=== PATIENT | female | born 1970 | race Caucasian/White ===

== ENCOUNTER 2016-05-06 20:38 | Emergency (ER) | payer BC ==
[2016-05-06] MEDS ORDERED: PROMETHAZINE HCL 25 MG in DEXTROSE 5 % IN WATER 50 ML IM ONE ×2 (20:53)
--- NOTE | 2016-05-06 21:01 | ERNOTE ---
Headache ER HPI - Narrative Date of Service: 05/06/16 - General Presenting Symptoms: headache Time Seen by Provider: 05/06/16 20:51 Source: patient Exam Limitations: no limitations - Immun/Allergies/Home Medications Immunizations: IMMUNIZATION HX Immunizations Up to Date Yes History of Influenza Vaccine No Hx Pneumococcal Vaccination No Allergies/Adverse Reactions: Allergies albumin human *RETIRED-10/03/12 [From Rebif] Allergy (Intermediate, Verified 10/15 20:55) Shortness of Breath diphenhydramine HCl [From Benadryl] Allergy (Intermediate, Verified 05/06/16 20: 55) tachycardia morphine Allergy (Intermediate, Verified 05/06/16 20:55) difficult breathing peanut Allergy (Intermediate, Verified 05/06/16 20:55) HIVES, BREATHING ISSUES WALNUTS interferon beta-1a [From Rebif] Allergy (Unknown, Verified 05/06/16 20:55) amoxicillin [Amoxicillin] Adverse Reaction (Mild, Verified 05/06/16 20:55) Itching cephalexin [Cephalexin] Adverse Reaction (Mild, Verified 05/06/16 20:55) Itching erythromycin base [Erythromycin Base] Adverse Reaction (Mild, Verified 05/06/16 20:55) Itching hydrocodone Adverse Reaction (Mild, Verified 05/06/16 20:55) MIGRAINE varenicline tartrate [From Chantix] Adverse Reaction (Mild, Verified 05/06/16 20 :55) Headache tecfidera Allergy (Mild, Uncoded 05/06/16 20:55) Hives "felt like body was on fire" contrast dye Adverse Reaction (Intermediate, Uncoded 05/06/16 20:55) chest pain Home Medications: HOME MEDICATIONS ALPRAZolam [Xanax] 0.5 mg PO HS 09/11/14 [Last Taken Unknown] Furosemide [Lasix] 20 mg PO DAILY 10/11/15 [Last Taken Unknown] Acetaminophen with Codeine [Tylenol with Codeine #3 Tablet] 1 each PO Q6H PRN [Last Taken Unknown] Teriflunomide [Aubagio] 14 mg PO DAILY 01/11/16 [Last Taken Unknown] Clindamycin HCl [Cleocin HCl] 300 mg PO BID 05/06/16 [Last Taken Unknown] Promethazine HCl [Phenergan] 25 mg PO QID PRN #30 tab 05/06/16 [Last Taken Unknown] oxyCODONE HCL/ACETAMINOPHEN [Percocet 5 MG/325 MG] 5 PO PRN PRN 05/06/16 [Last Taken Unknown] - History of Present Illness Narrative: Pt. comes in with c/o L temporal and frontal headache for two days. Pt. has a recent hx of TMJ pain and dental infection and is on abx for this. Pt. states that headache started yesterday and was not relieved despite taking percocet. Pt. also states that she has nausea with this. Pt. does however state that this is one of the worst headaches she has had but also states that when she gets a MS flare her headaches are worse than this. Pt. also states that she has blurred vision but denies any double vision and states that she has a hx of this intermittently. Pt. denies any numbness, tingling, or dizziness. Pt. denies any alleviating factors but states that light exacerbates the symptoms and the symptoms are accompanied by nausea and vomiting. Review of Systems - Review of Systems Constitutional: Present: no symptoms reported. Absent: recent illness, fever, chills, weakness, fatigue, malaise EYE: Present: blurred vision. Absent: eye pain, double vision, tearing ENT: Present: ear pain - L, other - L jaw pain. Absent: ear discharge, nose pain, nose congestion, nasal drainage Respiratory: Present: no symptoms reported. Absent: shortness of breath, cough , wheezing Cardiology: Present: no symptoms reported. Absent: chest pain, palpitations, edema Gastrointestinal/Abdominal: Present: nausea, vomiting. Absent: diarrhea, constipation, abdominal pain Genitourinary: Present: no symptoms reported Musculoskeletal: Present: no symptoms reported. Absent: back pain, joint pain Skin: Present: no symptoms reported Neurological: Present: headache. Absent: dizziness/light-headedness, numbness, tingling All Other Systems: All systems neg except as marked - Patient's Past Medical History Patient History - Medical: Anxiety, Arthritis, Depression, Migraines, Other - multiple sclerosis Patient History - Cardiac/Respiratory: No pertinent hx Patient History - Cancer: No Hx of Cancer Patient History - Surgical Procedures: Tubal Ligation, T & A, Other Patient History - Other: None - Family History Mother Family History - Cardiac/Respiratory: CVA/Stroke, Other Father Family History - Medical: Anemia, Arthritis, Other Family History - Cardiac/Respiratory: COPD, Hyperlipidemia Brother Family History - Medical: Diabetes Type 2, Other Family History - Cardiac/Respiratory: COPD Grandfather-Maternal Family History - Cardiac/Respiratory: Myocardial Infarction Grandfather-Paternal Family History - Medical: , Diabetes Type 1 Family History - Cardiac/Respiratory: Hypertension, Myocardial Infarction Grandmother-Maternal Family History - Cardiac/Respiratory: CVA/Stroke, Hypertension, Other Grandmother-Paternal Family History - Medical: Diabetes Type 2 Family History - Cardiac/Respiratory: Atrial Fibrillation, CVA/Stroke, Hypertension - Social History Living Situations: home Abuse History: No History of abuse Psych History: Hx of Anxiety, Hx of Depression Alcohol Use: occasionally Drug Use: none - Immunizations Immunizations Up to Date: Yes Hx Pneumococcal Vaccination: No History of Influenza Vaccine: No Physical Exam - Physical Exam General Appearance: Present: wd/wn, alert, no apparent distress Eye Exam: Normal inspection: bilateral, PERRL: bilateral, EOMI: bilateral Ears, Nose, Throat: Present: normal ENT inspection, normal pharynx Neck: Present: normal inspection, nontender. Absent: lymphadenopathy (R), lymphadenopathy (L) Respiratory: Present: no respiratory distress, normal breath sounds, no accessory muscle use, chest nontender, lungs clear Cardiovascular/Chest: Present: regular rate, rhythm, no murmur, normal peripheral pulses Gastrointestinal/Abdominal: Present: normal bowel sounds, nontender, nondistended, soft, no organomegaly Back Exam: Present: normal inspection, normal range of motion, no CVA tenderness , no vertebral tenderness Extremity Exam: Present: normal inspection Neurological Exam: Present: alert, oriented, normal mood/affect, no motor/ sensory deficits. 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 Absent: pallor, skin rash ED Progress - Vital Signs Patient's Vital Signs:: I have reviewed the patient's vital signs. - Progress/Reassessment Progress:: Improved Departure Clinical Impression: Complicated migraine - Departure Disposition: Home self-care Condition: Good Instructions: Recurrent Migraine Headache, [id number] Additional Instructions: Please follow up with dentist for jaw pain and your neurologist to discuss further headache and MS treatment. Referrals: Timo Moran MD [Primary Care Provider] - Prescriptions: Promethazine HCl [Phenergan] 25 mg PO QID PRN #30 tab PRN Reason: nausea/vomiting
--- OUTSIDE RECORDS SUMMARY | 2016-05-06 21:03 | XMS REPORT | Continuity of Care Document ---
:1970 Author Organization [facility] ([facility]) Address [address] [place] [address] Phone [phone] Care Team Providers Name Role Phone Summer Palacios Primary Care Provider [phone] Source Comments This disclosure is being made pursuant to the Care Everywhere program, applicable federal and state laws, and may not contain all informaitonavailable regarding this patient.[facility] ([facility]) Active Allergies and Adverse Reactions Allergen Noted Date Severity Reactions Comments Cephalexin 09/19/2012 Urticaria (Hives) Contrast Media Cardiac Arrhythmia Diphenhydramine Hcl 05/05/2012 Tachycardia Interferon Beta-1a 05/05/2012 Nausea & Vomiting Migraine Morphine 05/05/2012 Shortness of breath Difficulty breathing. Current Medications Prescription Sig. Disp. Refills Start Date End Date Status ALPRAZolam 0.5 mg Take 0.5 mg by mouth Active tablet at bedtime as needed. amitriptyline 50 mg Take 50 mg by mouth Active tablet at bedtime. CALCIUM Take 1,000 mg by Active CARBONATE/VITAMIN D3 mouth daily. (VITAMIN D-3 PO) BLACK COHOSH PO Take by mouth Active daily. gabapentin 300 mg Take 1 capsule each 90 Cap 0 09/19/2012 Active capsule day at bedtime for 1 week. If symptoms are not relieved, take 2 capsules each day at bedtime for 1 week. If symptoms still are not relieved, take 3 capsules each day at bedtime.Indications: NEUROPATHIC PAIN HYDROCODONE Take by mouth. Active BIT/ACETAMINOPHEN (VICODIN PO) traMADol PO Take by mouth. Active Active Problems Problem Noted Date History of multiple sclerosis 09/19/2012 Ulnar neuropathy of both upper extremities 09/19/2012 Social History Tobacco Use Types Packs/Day Years Used Date Current Every Day Smoker Comments:1ppd Alcohol Use Drinks/Week oz/Week Comments Yes Very rarely Last Filed Vital Signs Vital Sign Reading Time Taken Blood Pressure 133/94 10/01/2012 8:54 PM CDT Pulse 72 10/01/2012 8:54 PM CDT Temperature 35.6 C (96.1 F) 10/01/2012 8:54 PM CDT Respiratory Rate 20 10/01/2012 8:54 PM CDT Height - - Weight - - Body Mass Index - - Oxygen Saturation 100% 10/01/2012 8:54 PM CDT Plan of Care Health Maintenance Due Date Last Done Comments Hepatitis B Vaccine (1 of 3 - Primary Series) 1970 Tdap Vaccine 12/31/1978 Lipid Disorder Screening 12/31/1985 MMR Vaccine 12/31/1985 Td Vaccine 12/31/1985 Pneumococcal Vaccine (1 of 1 - PPSV23) 12/31/1986 Cervical Cancer Screening 12/31/1997 Mammogram 2008 Influenza Vaccine: Seasonal (#1) 09/30/2015 Results from Last 3 Months Not on file
[2016-05-06] MEDS ORDERED: NALBUPHINE HCL 20 MG/ML AMPUL ONE (21:05)
[2016-05-06] MEDS ORDERED: PROMETHAZINE HCL 25 MG/ML AMPUL ONE (21:05)
[2016-05-06] MEDS: PROMETHAZINE HCL 25 MG/ML AMPUL IM ONE (21:11)
[2016-05-06] MEDS: NALBUPHINE HCL 20 MG/ML AMPUL IM ONE (21:12)
[2016-05-06 22:10] VITALS: BP 158/100
== END 2016-05-06 22:07 | disposition home or self-care (01) ==
LOC: ER 20:38
DX: G43.109 Migraine with aura, not intractable, without status migrainosus (principal); F41.9 Anxiety disorder, unspecified

== ENCOUNTER 2016-07-10 10:22 | Emergency (ER) | payer BC ==
[2016-07-10 10:35] VITALS: BP 181/108
--- NOTE | 2016-07-10 11:51 | ERNOTE ---
Psychological HPI - Date Date of Service: 07/10/16 - General Chief Complaint: Psychiatric Problem Source: Reports: patient, family - DAUGHTER. , police - Immun/Allergies/Home Medications Allergies/Adverse Reactions: Allergies albumin human [From Rebif] Allergy (Intermediate, Verified 07/10/16 10:35) Shortness of Breath diphenhydramine HCl [From Benadryl] Allergy (Intermediate, Verified 07/10/16 10: 35) tachycardia morphine Allergy (Intermediate, Verified 07/10/16 10:35) difficult breathing peanut Allergy (Intermediate, Verified 07/10/16 10:35) HIVES, BREATHING ISSUES WALNUTS interferon beta-1a [From Rebif] Allergy (Unknown, Verified 07/10/16 10:35) amoxicillin [Amoxicillin] Adverse Reaction (Mild, Verified 07/10/16 10:35) Itching cephalexin [Cephalexin] Adverse Reaction (Mild, Verified 07/10/16 10:35) Itching erythromycin base [Erythromycin Base] Adverse Reaction (Mild, Verified 07/10/16 10:35) Itching hydrocodone Adverse Reaction (Mild, Verified 07/10/16 10:35) MIGRAINE varenicline tartrate [From Chantix] Adverse Reaction (Mild, Verified 07/10/16 10 :35) Headache tecfidera Allergy (Mild, Uncoded 07/10/16 10:35) Hives "felt like body was on fire" contrast dye Adverse Reaction (Intermediate, Uncoded 07/10/16 10:35) chest pain Home Medications: HOME MEDICATIONS ALPRAZolam [Xanax] 0.5 mg PO HS 09/11/14 [Last Taken Unknown] Furosemide [Lasix] 20 mg PO DAILY 10/11/15 [Last Taken Unknown] Acetaminophen with Codeine [Tylenol with Codeine #3 Tablet] 1 each PO Q6H PRN [Last Taken Unknown] Teriflunomide [Aubagio] 14 mg PO DAILY 01/11/16 [Last Taken Unknown] Clindamycin HCl [Cleocin HCl] 300 mg PO BID 05/06/16 [Last Taken Unknown] Promethazine HCl [Phenergan] 25 mg PO QID PRN #30 tab 05/06/16 [Last Taken Unknown] oxyCODONE HCL/ACETAMINOPHEN [Percocet 5 MG/325 MG] 5 PO PRN PRN 05/06/16 [Last Taken Unknown] - History of Present Illness Narrative: PT BROUGHT HERE BY POLICE AFTER SHE REPORTEDLY THREATENED TO"JUMP OFF A BRIDGE" . SHE STATED THAT SHE HAS BEEN TRYING TO GET INTO HER COUNSELOR BUT THEY COULDN' T SEE HER TODAY. SHE MADE SOME COMMENT THAT LED THEM TO CONTACT THE POLICE THOUGH SHE STATES SHE IS ANGRY AND UPSET WITH HER WHO HAS DECIDED AFTER 20 YEARS , THAT HE WANTS TO LEAVE HER FOR HIS EX- . SHE ADMITS THAT SHE MAY HAVE SAID THINGS THAT SHE DOES NOT MEAN AND IS ADAMANT NOW THAT SHE IS NOT OR EVER BEEN SUICIDAL OR HOMICIDAL. HER DAUGHTER , WHO LIVES 2 BLOCKS AWAY , IS WITH HER NOW AND SAYS SHE WILL BE ABLE TO BE WITH HER MOM ALL DAY AND THAT A 29 YO SON IN [place] IS COMING DOWN TOO. PT. HAS BEEN IN COUNSELING RECENTLY FOR MARITAL PROBLEMS SO SOME OF THESE ISSUES HAVE BEEN ONGOING. SHE DENIES DRUG OR ALCOHOL USE. Time Seen by Provider: 07/10/16 11:48 Arrived by: Reports: police Review of Systems - Review of Systems Constitutional: Present: See HPI Psych: Present: anxiety, depressed - OVER MARITAL ISSUES. All Other Systems: All systems neg except as marked - Patient's Past Medical History Patient History - Medical: Anxiety, Arthritis, Depression, Migraines, Other - M.S. Patient History - Cardiac/Respiratory: No pertinent hx Patient History - Cancer: No Hx of Cancer Patient History - Surgical Procedures: Tubal Ligation, T & A, Other Patient History - Other: None - Family History Mother Family History - Cardiac/Respiratory: CVA/Stroke, Other Father Family History - Medical: Anemia, Arthritis, Other Family History - Cardiac/Respiratory: COPD, Hyperlipidemia Brother Family History - Medical: Diabetes Type 2, Other Family History - Cardiac/Respiratory: COPD Grandfather-Maternal Family History - Cardiac/Respiratory: Myocardial Infarction Grandfather-Paternal Family History - Medical: , Diabetes Type 1 Family History - Cardiac/Respiratory: Hypertension, Myocardial Infarction Grandmother-Maternal Family History - Cardiac/Respiratory: CVA/Stroke, Hypertension, Other Grandmother-Paternal Family History - Medical: Diabetes Type 2 Family History - Cardiac/Respiratory: Atrial Fibrillation, CVA/Stroke, Hypertension - Social History Living Situations: home Abuse History: No History of abuse Psych History: Hx of Anxiety, Hx of Depression Smoking Status: Current every day smoker Alcohol Use: occasionally Drug Use: none - Immunizations Immunizations Up to Date: Yes Hx Pneumococcal Vaccination: No History of Influenza Vaccine: No Physical Exam - Physical Exam General Appearance: Present: wd/wn, alert, mild distress - MOSTLY UPSET THAT THAT SHE WAS BROUGHT HERE. Eye Exam: Normal inspection: bilateral, PERRL: bilateral, EOMI: bilateral Ears, Nose, Throat: Present: normal ENT inspection Neck: Present: normal inspection Respiratory: Present: no respiratory distress, normal breath sounds, no accessory muscle use, chest nontender, lungs clear Cardiovascular/Chest: Present: regular rate, rhythm, no murmur, normal peripheral pulses Gastrointestinal/Abdominal: Present: normal bowel sounds, nontender Back Exam: Present: normal inspection Extremity Exam: Present: normal inspection Neurological Exam: Present: alert, oriented, high tension tester II-XII nml as tested, other - MORE ANGRY THAN DEPRESSED. Skin Exam: Present: normal color ED Progress - Vital Signs Vital Signs: Vital Signs 07/10/16 10:32 Temperature 36.9 C Pulse Rate 78 Respiratory 16 Rate Blood Pressure 181/108 O2 Sat by Pulse 96 Oximetry - Progress/Reassessment Chief Complaint: Psychiatric Problem Plan - Plan Plan: I TALKED WITH HER AND DAUGHTER AND THEY ARE BOTH ADAMANT THAT SHE IS NOT SUICIDAL AND THAT DAUGHTER WILL BE WITH HER THIS WEEKEND TO HELP HER THRU HER EMOTIONAL UPSET. SHE DOES PLAN TO FOLLOW UP WITH HER COUNSELOR ON WEDNESDAY WHEN THEY ARE AVAILABLE . Departure Clinical Impression: Situational anxiety - Departure Disposition: Home Follow Up Needed Instructions: Panic Attacks, [id number] Additional Instructions: SITUATIONS LIKE YOU ARE CURRENTLY IN ARE VERY STRESSFUL AND EMOTIONAL BUT IT IS IMPORTANT TO MAKE DECISIONS IN TIMES LIKE THIS FROM A STANCE OF STRENGTH AND NO RASHLY OR SPUR OF THE MOMENT. RLEY ON YOUR SUPPORT SYSTEMS OF DAUGHTER AND SON AND AVOID CONFTONTATION WITH YOUR SPOUSE AT THIS TIME.I THINK YOU SHOULD KEEP APPOINTMENT WITH YOUR COUNSELOR OR TALK TO A THIRD GREEN PARTY LIKE A PASTO WHO OFTEN HAVE MUCH EXPERIENCE WITH THESE TYPE OF MATTERS. AVOID ALCOHOL OR ANY "PHARMACEUTICAL" CRUTCHES RIGHT NOW UNLESS THEY ARE PRESCRIBED TO YOU BY A MENTAL HEALTH WORKER. IF YOU ARE HAVING ANY SUICIDAL OR HOMICIDAL THOUGHTS SEEK HELP RIGHT AWAY RATHER THAN THREATENING OR ACTING ON THOSE THOUGHTS. Referrals: Timo Moran MD [Primary Care Provider] -
--- OUTSIDE RECORDS SUMMARY | 2016-07-10 12:00 | XMS REPORT | Continuity of Care Document ---
:1970 Author Organization [facility] ([facility]) Address [address] [place] [address] Phone [phone] Care Team Providers Name Role Phone Summer Palacios Primary Care Provider [phone] Source Comments This disclosure is being made pursuant to the Care Everywhere program, applicable federal and state laws, and may not contain all informaitonavailable regarding this patient.[facility] ([facility]) Active Allergies and Adverse Reactions Allergen [...]
== END 2016-07-10 12:19 | disposition home or self-care (01) ==
LOC: ER 10:22
DX: F41.8 Other specified anxiety disorders (principal)

== ENCOUNTER 2016-08-31 12:35 | Emergency (ER) | payer BC ==
--- NOTE | 2016-08-31 14:01 | ERNOTE ---
Lower Extremity HPI - Narrative Date of Service: 08/31/16 - General Lower Extremities Pain: leg: right Time Seen by Provider: 08/31/16 13:43 Source: patient, RN notes reviewed Exam Limitations: no limitations - Immun/Allergies/Home Medications Immunizations: IMMUNIZATION HX Immunizations Up to Date Yes History of Influenza Vaccine No Hx Pneumococcal Vaccination No Allergies/Adverse Reactions: Allergies Allergy/AdvReac Type Severity Reaction Status Date / Time albumin human [From Rebif] Allergy Intermediate Shortness Verified 08/31/16 12: 42 of Breath diphenhydramine HCl Allergy Intermediate tachycardia Verified 08/31/16 12:42 [From Benadryl] morphine Allergy Intermediate difficult Verified 08/31/16 12:42 breathing peanut Allergy Intermediate HIVES, Verified 08/31/16 12:42 BREATHING ISSUES interferon beta-1a Allergy Unknown Verified 08/31/16 12:42 [From Rebif] amoxicillin [Amoxicillin] AdvReac Mild Itching Verified 08/31/16 12:42 cephalexin [Cephalexin] AdvReac Mild Itching Verified 08/31/16 12:42 erythromycin base AdvReac Mild Itching Verified 08/31/16 12:42 [Erythromycin Base] hydrocodone AdvReac Mild MIGRAINE Verified 08/31/16 12:42 varenicline tartrate AdvReac Mild Headache Verified 08/31/16 12:42 [From Chantix] tecfidera Allergy Mild Hives Uncoded 08/31/16 12:42 contrast dye AdvReac Intermediate chest pain Uncoded 08/31/16 12:42 Home Medications: HOME MEDICATIONS ALPRAZolam [Xanax] 0.5 mg PO HS 09/11/14 [Last Taken Unknown] Furosemide [Lasix] 40 mg PO DAILY 10/11/15 [Last Taken Unknown] Acetaminophen with Codeine [Tylenol with Codeine #3 Tablet] 1 each PO Q6H PRN [Last Taken Unknown] Teriflunomide [Aubagio] 14 mg PO DAILY 01/11/16 [Last Taken Unknown] - History of Present Illness Narrative: 46 y/o female ambulatory to the ED for right calf pain and increased edema in her feet. She had a cramp in her calf a few nights ago and it has been sore since then. She is concerned about the edema because she takes Lasix and does not know why it is not controlling the swelling. She reports having a DVT approximately 2 years ago. She is not on any anticoagulants. She is a half pack per day smoker. Method of Injury: Reports: no apparent injury Prior Treament: Reports: similar symptoms before Review of Systems - Review of Systems Constitutional: Absent: recent illness, fever, chills EYE: Present: no symptoms reported ENT: Present: no symptoms reported Respiratory: Absent: shortness of breath, cough Cardiology: Present: edema, claudication. Absent: chest pain, palpitations, syncope Gastrointestinal/Abdominal: Absent: nausea, abdominal pain Genitourinary: Absent: dysuria, decreased urinary output Musculoskeletal: Present: muscle pain. Absent: back pain, joint pain Neurological: Present: dizziness/light-headedness. Absent: headache Endocrine: Present: no symptoms reported Hematologic/Lymphatic: Present: no symptoms reported Psych: Present: no symptoms reported - Patient's Past Medical History Patient History - Medical: Anxiety, Arthritis, Depression, Migraines, Other - Multiple sclerosis Patient History - Cardiac/Respiratory: No pertinent hx Patient History - Cancer: No Hx of Cancer Patient History - Surgical Procedures: Tubal Ligation, T & A, Other Patient History - Other: None - Family History Mother Family History - Cardiac/Respiratory: CVA/Stroke, Other Father Family History - Medical: Anemia, Arthritis, Other Family History - Cardiac/Respiratory: COPD, Hyperlipidemia Brother Family History - Medical: Diabetes Type 2, Other Family History - Cardiac/Respiratory: COPD Grandfather-Maternal Family History - Cardiac/Respiratory: Myocardial Infarction Grandfather-Paternal Family History - Medical: , Diabetes Type 1 Family History - Cardiac/Respiratory: Hypertension, Myocardial Infarction Grandmother-Maternal Family History - Cardiac/Respiratory: CVA/Stroke, Hypertension, Other Grandmother-Paternal Family History - Medical: Diabetes Type 2 Family History - Cardiac/Respiratory: Atrial Fibrillation, CVA/Stroke, Hypertension - Social History Living Situations: home Abuse History: No History of abuse Psych History: Hx of Anxiety, Hx of Depression Smoking Status: Current every day smoker Cigarettes Packs Per Day: 0.5 Alcohol Use: occasionally Drug Use: none - Immunizations Immunizations Up to Date: Yes Hx Pneumococcal Vaccination: No History of Influenza Vaccine: No Physical Exam - Physical Exam General Appearance: Present: wd/wn, alert, no apparent distress Neck: Present: normal inspection, nontender, supple, full range of motion Respiratory: Present: no respiratory distress, normal breath sounds, no accessory muscle use, lungs clear Cardiovascular/Chest: Present: regular rate, rhythm, no murmur, normal peripheral pulses Extremity Exam: Present: normal range of motion, pedal edema - mild, bilateral, calf tenderness - Right. Absent: joint redness, joint swelling Neurological Exam: Present: alert, oriented, normal mood/affect, no motor/ sensory deficits Skin Exam: Present: normal color, warm/dry ED Progress - Results and Orders Patient's Lab Results:: I have reviewed the patient's lab results. - Vital Signs Patient's Vital Signs:: I have reviewed the patient's vital signs. Vital Signs: Vital Signs 08/31/16 08/31/16 12:38 13:15 Temperature 36.7 C 37.3 C Pulse Rate 71 75 Respiratory 12 15 Rate Blood Pressure 149/98 130/82 O2 Sat by Pulse 99 95 Oximetry - Progress/Reassessment Chief Complaint: Lower Extremity Pain/ Injury Progress:: Unchanged Departure Clinical Impression: Bilateral lower extremity edema, Right calf pain - Departure Disposition: Home Follow Up Needed Condition: Good Instructions: Edema, [id number], Form - Excuse from Work, School, or Physical Activity Additional Instructions: Follow up with Dr. Moran about leg swelling Try compression socks Heat to sore area on calf Referrals: Timo Moran MD [Primary Care Provider] -
[2016-08-31 14:08] LABS: Hematocrit 40.9 % (37.0-47.0); Hemoglobin 13.5 gm/dL (12.5-16.0); Mean Corpuscular Hemoglobin 31.7 pg (27-31); Mean Platelet Volume 10.7 fl (6.0-9.5); Neutrophil # 4.7 K/mm3 (1.3-6.0); Neutrophil % 65.3 % (42-75.0); Platelet Count 202 K/mm3 (150-450); Red Blood Count 4.26 M/mm3 (4.2-5.4); Red Cell Distribution Width 12.7 % (11.5-14.0); White Blood Count 7.2 K/mm3 (4.0-10.5)
[2016-08-31 14:33] LABS: Albumin * 3.9 gm/dl (3.4-5.0); Anion Gap 10.8 mmol/L (6.8-13.8); BUN/Creatinine Ratio 15.2 (9.0-21.6); Bilirubin, Total 0.6 mg/dL (0.0-1.1); Ca. Corrected For Albumin 9.1 mg/dL (8.4-10.2); Calcium * 9.3 mg/dL (7.9-10.9); Carbon Dioxide 30.7 mmol/L (24-32.6); Potassium 3.5 mmol/L (3.4-4.6); Total Protein 7.3 gm/dL (6.2-8.2)
[2016-08-31] MEDS ORDERED: ACETAMINOPHEN 500 MG TABLET PO ONE (14:35)
[2016-08-31 14:37] VITALS: BP 128/80
== END 2016-08-31 15:09 | disposition home or self-care (01) ==
LOC: ER 12:35
DX: R60.0 Localized edema (principal); M79.1 Myalgia; F41.8 Other specified anxiety disorders; Z72.0 Tobacco use

== ENCOUNTER 2016-09-08 08:06 | Emergency (ER) | payer BC ==
[2016-09-08] MEDS ORDERED: ONDANSETRON HCL/PF 2 MG/ML VIAL IV ONE (08:14)
[2016-09-08] MEDS ORDERED: NORMAL SALINE 1,000 ML IV ONE (08:14)
[2016-09-08] MEDS ORDERED: METHYLPREDNISOLONE SOD SUCC/PF 125 MG/2 ML VIAL IV ONE (08:15)
--- NOTE | 2016-09-08 08:19 | ERNOTE ---
Medical Problem HPI - General Chief Complaint: Nausea/Vomiting Time Seen by Provider: 09/08/16 08:06 Source: patient Exam Limitations: no limitations - Immun/Allergies/Home Medications Immunizations: IMMUNIZATION HX Immunizations Up to Date Yes History of Influenza Vaccine No Hx Pneumococcal Vaccination No Allergies/Adverse Reactions: Allergies albumin human [From Rebif] Allergy (Intermediate, Verified 09/08/16 08:11) Shortness of Breath diphenhydramine HCl [From Benadryl] Allergy (Intermediate, Verified 09/08/16 08: 11) tachycardia morphine Allergy (Intermediate, Verified 09/08/16 08:11) difficult breathing peanut Allergy (Intermediate, Verified 09/08/16 08:11) HIVES, BREATHING ISSUES WALNUTS interferon beta-1a [From Rebif] Allergy (Unknown, Verified 09/08/16 08:11) amoxicillin [Amoxicillin] Adverse Reaction (Mild, Verified 09/08/16 08:11) Itching cephalexin [Cephalexin] Adverse Reaction (Mild, Verified 09/08/16 08:11) Itching erythromycin base [Erythromycin Base] Adverse Reaction (Mild, Verified 09/08/16 08:11) Itching hydrocodone Adverse Reaction (Mild, Verified 09/08/16 08:11) MIGRAINE varenicline tartrate [From Chantix] Adverse Reaction (Mild, Verified 09/08/16 08 :11) Headache tecfidera Allergy (Mild, Uncoded 09/08/16 08:11) Hives "felt like body was on fire" contrast dye Adverse Reaction (Intermediate, Uncoded 09/08/16 08:11) chest pain Home Medications: HOME MEDICATIONS ALPRAZolam [Xanax] 0.5 mg PO HS 09/11/14 [Last Taken Unknown] Furosemide [Lasix] 40 mg PO DAILY 10/11/15 [Last Taken Unknown] Teriflunomide [Aubagio] 14 mg PO DAILY 01/11/16 [Last Taken Unknown] - History of Present History Narrative: Patient felt well when she got up this morning. When she got IV contrast for a MRI this morning around 07:15 she started to feel nauseated but was able to finish the scan and keep water down at that time. She refused to come to the ER , went to her car and has vomited about 15 times since. She denies any shortness of breath, no throat swelling, no abdominal pain, no diarrhea. She never had problems with IV contrast before. The MRI was for her MS Review of Systems - Review of Systems Constitutional: Absent: recent illness, fever, chills EYE: Absent: double vision ENT: Absent: nose congestion, sore throat, throat swelling Respiratory: Absent: shortness of breath, cough Cardiology: Absent: chest pain Gastrointestinal/Abdominal: Present: nausea, vomiting. Absent: diarrhea, constipation, abdominal pain Genitourinary: Present: no symptoms reported Musculoskeletal: Absent: back pain Skin: Absent: rash Neurological: Present: headache. Absent: weakness, numbness - Patient's Past Medical History Patient History - Medical: Anxiety, Arthritis, Depression, Migraines, Other Patient History - Cardiac/Respiratory: No pertinent hx Patient History - Cancer: No Hx of Cancer Patient History - Surgical Procedures: , Tubal Ligation, T & A, Other Patient History - Other: None - Family History Mother Family History - Cardiac/Respiratory: CVA/Stroke, Other Father Family History - Medical: Anemia, Arthritis, Other Family History - Cardiac/Respiratory: COPD, Hyperlipidemia Brother Family History - Medical: Diabetes Type 2, Other Family History - Cardiac/Respiratory: COPD Grandfather-Maternal Family History - Cardiac/Respiratory: Myocardial Infarction Grandfather-Paternal Family History - Medical: , Diabetes Type 1 Family History - Cardiac/Respiratory: Hypertension, Myocardial Infarction Grandmother-Maternal Family History - Cardiac/Respiratory: CVA/Stroke, Hypertension, Other Grandmother-Paternal Family History - Medical: Diabetes Type 2 Family History - Cardiac/Respiratory: Atrial Fibrillation, CVA/Stroke, Hypertension - Social History Living Situations: home Abuse History: No History of abuse Psych History: Hx of Anxiety, Hx of Depression Smoking Status: Current every day smoker Have you smoked in the past 12 months: Yes Alcohol Use: occasionally Drug Use: none - Immunizations Immunizations Up to Date: Yes Hx Pneumococcal Vaccination: No History of Influenza Vaccine: No Physical Exam - Physical Exam General Appearance: Present: wd/wn, alert, no apparent distress Eye Exam: Normal inspection: bilateral Ears, Nose, Throat: Present: normal pharynx Respiratory: Present: no respiratory distress, normal breath sounds, no accessory muscle use, lungs clear Cardiovascular/Chest: Present: regular rate, rhythm, no murmur Gastrointestinal/Abdominal: Present: normal bowel sounds, nontender, nondistended, soft Neurological Exam: Present: alert, oriented, normal mood/affect Skin Exam: Present: normal color, warm/dry. Absent: skin rash ED Progress - Vital Signs Patient's Vital Signs:: I have reviewed the patient's vital signs. Vital Signs: Vital Signs 09/08/16 08:07 Temperature 36.7 C Pulse Rate 77 Respiratory 12 Rate Blood Pressure 165/93 O2 Sat by Pulse 97 Oximetry - Progress/Reassessment Chief Complaint: Nausea/Vomiting Progress Note-Subjective: 09/08/16 08:54 patient states that she is feeling better, not ready to try water or crackers though, still has headache, patient has a ride now, will try phenergan 09/08/16 09:26 feeling better, still headache (no ride) will give toradol 09/08/16 09:35 discussed with patient whether she feels that this is a migraine causing the vomiting. She states that it feels like a beginning of a migraine now, but vomiting started before headache and with migraine the headache usually comes first Departure - Departure Clinical Impression: Reaction to contrast media Qualifiers: Encounter type: initial encounter Qualified Code(s): T50.8X5A - Adverse effect of diagnostic agents, initial encounter Disposition: Home self-care Condition: Good Instructions: Drug Allergy, [id number], Form - Excuse from Work, School, or Physical Activity Referrals: Timo Moran MD [Staff Physician] -
[2016-09-08] MEDS ORDERED: METHYLPREDNISOLONE SOD SUCC/PF 125 MG/2 ML VIAL ONE (08:20)
[2016-09-08] MEDS ORDERED: ONDANSETRON HCL/PF 2 MG/ML VIAL ONE (08:20)
[2016-09-08] MEDS ORDERED: PROMETHAZINE HCL 25 MG in DEXTROSE 5 % IN WATER 50 ML IV ONE ×2 (08:53)
[2016-09-08] MEDS ORDERED: KETOROLAC TROMETHAMINE 30 MG/ML VIAL IV ONE (09:25)
[2016-09-08] MEDS ORDERED: KETOROLAC TROMETHAMINE 30 MG/ML VIAL ONE (09:29)
[2016-09-08 09:35] VITALS: BP 129/73
== END 2016-09-08 09:55 | disposition home or self-care (01) ==
LOC: ER 08:06
DX: T50.8X5A Adverse effect of diagnostic agents, initial encounter (principal); R11.2 Nausea with vomiting, unspecified; R51 Headache; Z72.0 Tobacco use
CPT/HCPCS: 96365; 96375; 99284; J2405

== ENCOUNTER 2016-10-26 11:50 | Emergency (ER) | payer BC ==
--- NOTE | 2016-10-26 12:35 | ERNOTE ---
Medical Problem HPI - General Chief Complaint: General Assessment Time Seen by Provider: 10/26/16 12:07 Source: patient Exam Limitations: no limitations - Immun/Allergies/Home Medications Immunizations: IMMUNIZATION HX Immunizations Up to Date Yes History of Influenza Vaccine No Hx Pneumococcal Vaccination No Allergies/Adverse Reactions: Allergies albumin human [From Rebif] Allergy (Intermediate, Verified 10/26/16 11:58) Shortness of Breath diphenhydramine HCl [From Benadryl] Allergy (Intermediate, Verified 10/26/16 11: 58) tachycardia morphine Allergy (Intermediate, Verified 10/26/16 11:58) difficult breathing peanut Allergy (Intermediate, Verified 10/26/16 11:58) HIVES, BREATHING ISSUES [place]S interferon beta-1a [From Rebif] Allergy (Unknown, Verified 10/26/16 11:58) amoxicillin [Amoxicillin] Adverse Reaction (Mild, Verified 10/26/16 11:58) Itching cephalexin [Cephalexin] Adverse Reaction (Mild, Verified 10/26/16 11:58) Itching erythromycin base [Erythromycin Base] Adverse Reaction (Mild, Verified 10/26/16 11:58) Itching hydrocodone Adverse Reaction (Mild, Verified 10/26/16 11:58) MIGRAINE varenicline tartrate [From Chantix] Adverse Reaction (Mild, Verified 10/26/16 11 :58) Headache tecfidera Allergy (Mild, Uncoded 10/26/16 11:58) Hives "felt like body was on fire" contrast dye Adverse Reaction (Intermediate, Uncoded 10/26/16 11:58) chest pain Home Medications: HOME MEDICATIONS ALPRAZolam [Xanax] 0.5 mg PO HS 09/11/14 [Last Taken Unknown] Furosemide [Lasix] 40 mg PO DAILY 10/11/15 [Last Taken Unknown] Teriflunomide [Aubagio] 14 mg PO DAILY 01/11/16 [Last Taken Unknown] Fluconazole [Diflucan] 150 mg PO ONCE #1 tab 10/26/16 [Last Taken Unknown] - History of Present History Narrative: Patient slipped on the stairs about a week ago and had a contusion to her left sotomayor and also bumped her right arm some and is concerned that it is not completely healed yet. She also thinks that she may have some thrush as there is some whitish appearance on her tongue. She rates all the difficulties is only being mild and got worried because she is also in remission for her MS. Timing: other - improving slowly Severity: mild Review of Systems - Review of Systems Constitutional: Present: See HPI EYE: Present: no symptoms reported ENT: Present: See HPI Respiratory: Present: no symptoms reported Cardiology: Present: no symptoms reported Gastrointestinal/Abdominal: Present: no symptoms reported Genitourinary: Present: no symptoms reported Musculoskeletal: Present: See HPI Skin: Present: no symptoms reported Neurological: Present: no symptoms reported Endocrine: Present: no symptoms reported Hematologic/Lymphatic: Present: no symptoms reported Psych: Present: no symptoms reported - Patient's Past Medical History Patient History - Medical: Anxiety, Arthritis, Depression, Migraines, Other - MS Patient History - Cardiac/Respiratory: No pertinent hx Patient History - Cancer: No Hx of Cancer Patient History - Surgical Procedures: , Tubal Ligation, T & A, Other Patient History - Other: None - Family History Mother Family History - Cardiac/Respiratory: CVA/Stroke, Other Father Family History - Medical: Anemia, Arthritis, Other Family History - Cardiac/Respiratory: COPD, Hyperlipidemia Brother Family History - Medical: Diabetes Type 2, Other Family History - Cardiac/Respiratory: COPD Grandfather-Maternal Family History - Cardiac/Respiratory: Myocardial Infarction Grandfather-Paternal Family History - Medical: , Diabetes Type 1 Family History - Cardiac/Respiratory: Hypertension, Myocardial Infarction Grandmother-Maternal Family History - Cardiac/Respiratory: CVA/Stroke, Hypertension, Other Grandmother-Paternal Family History - Medical: Diabetes Type 2 Family History - Cardiac/Respiratory: Atrial Fibrillation, CVA/Stroke, Hypertension - Social History Living Situations: home Abuse History: No History of abuse Psych History: Hx of Anxiety, Hx of Depression Alcohol Use: occasionally Drug Use: none - Immunizations Immunizations Up to Date: Yes Hx Pneumococcal Vaccination: No History of Influenza Vaccine: No Physical Exam - Physical Exam General Appearance: Present: wd/wn, alert, mild distress Eye Exam: Normal inspection: bilateral, PERRL: bilateral Ears, Nose, Throat: Present: other - whitish appearance to the tongue Neck: Present: normal inspection, nontender Respiratory: Present: no respiratory distress, normal breath sounds, no accessory muscle use, chest nontender, lungs clear Cardiovascular/Chest: Present: regular rate, rhythm, no murmur, normal peripheral pulses Gastrointestinal/Abdominal: Present: normal bowel sounds, nontender, nondistended, soft, no organomegaly Rectal Exam: Present: deferred Back Exam: Present: normal inspection, normal range of motion Extremity Exam: Present: normal range of motion, no edema, other - healing bruising to the left sotomayor and small improving contusion to the right deltoid Neurological Exam: Present: alert, oriented, normal mood/affect Skin Exam: Present: normal color, warm/dry Lymphatic Exam: Present: no adenopathy ED Progress - Vital Signs Patient's Vital Signs:: I have reviewed the patient's vital signs. Vital Signs: Vital Signs 10/26/16 11:52 Temperature 36.4 C L Pulse Rate 75 Respiratory 12 Rate Blood Pressure 155/87 O2 Sat by Pulse 96 Oximetry - Progress/Reassessment Chief Complaint: General Assessment Plan - Plan Plan: Usually given one dose of Diflucan 150 mg for the thrush and she will apply heat to the bruising in the left sotomayor as well as small contusion to the right deltoid area. Departure - Departure Clinical Impression: Thrush, oral Contusion Qualifiers: Encounter type: initial encounter Contusion area: lower leg Laterality: left Qualified Code(s): S80.12XA - Contusion of left lower leg, initial encounter Disposition: Home self-care Condition: Good Instructions: Thrush, Adult, [id number], Contusion, [id number] Referrals: Timo Moran MD [Primary Care Provider] - Prescriptions: Fluconazole [Diflucan] 150 mg PO ONCE #1 tab
[2016-10-26 12:39] VITALS: BP 146/82
== END 2016-10-26 12:39 | disposition home or self-care (01) ==
LOC: ER 11:50
DX: B37.0 Candidal stomatitis (principal); S80.12XA Contusion of left lower leg, initial encounter; W10.2XXA Fall (on)(from) incline, initial encounter; Y93.9 Activity, unspecified; Y92.9 Unspecified place or not applicable; G35 Multiple sclerosis; F41.8 Other specified anxiety disorders